=== PATIENT | male | born 1960 | race Caucasian/White ===

== ENCOUNTER 2020-09-01 01:18 | Outpatient (CLI) | payer BC, SELFPAY ==
[2020-09-01 19:05] LABS: SARS-CoV-2 RNA PCR Negative
== END 2020-09-01 01:19 | disposition home or self-care (01) ==
LOC: ANHCOVIDDT 01:18
PROVIDERS: PCP Family Medicine; Visit Provider Internal Medicine Gastroenterology
DX: Z01.812 Encounter for preprocedural laboratory examination (principal); Z20.828 Contact with and (suspected) exposure to other viral communicable diseases
CPT/HCPCS: 87635; C9803; U0003

== ENCOUNTER 2020-09-03 01:15 | Day surgery (SDC) | payer BC, SELFPAY ==
[2020-09-01 10:33] VITALS: BMI 25.9
--- NOTE | 2020-09-02 08:03 | WPDANESEPPF ---
Anes - Initial Pre Proc Eval Procedure: Operation Date: 09/03/20 09:00 Proposed Procedures p Screening Colonoscopy - Jorge Sharma MD Date/Time: 09/02/20 08:03 Surgeon: Jorge Sharma MD Pre Op Diagnosis: neoplasm screening, hx colon polyps Patient Data Age: 59 Gender: M Height: 1.78 m Weight: 81.8 kg Allergies Allergy/AdvReac Type Severity Reaction Status Date / Time No Known Allergies Allergy Unknown Verified 09/03/20 08:21 Home Medications Medication Instructions Recorded Confirmed Type hydrochlorothiazide 25 mg tablet 25 mg PO DAILY #90 tablet 01/03/20 09/01/20 Rx metoprolol succinate 50 mg 50 mg PO DAILY #90 tablet 07/06/20 09/03/20 Rx tablet,extended release 24 hr multivitamin,[id number] 1 tablet PO DAILY 09/01/20 09/01/20 History [Complete Multivitamin] Patient hx anesthesia problems: none Family hx anesthesia problems: none PMFSH Past Medical History Medical History Essential (primary) hypertension Herniated cervical disc Overweight (BMI 25.0-29.9) Prediabetes Surgical History Surgical History History of tonsillectomy Family History Family History (Updated 01/05/18 @ 16:03 by DOCTOR UNKNOWN) Mother Diabetes mellitus Patient's mother is , Onset Age: 58 Father Patient's father is , Onset Age: 92 Social History Social History Smoking packs per day: 2 Smoking cigarettes per day: 40.0 Years smoked: 25 Smoking pack-years: 50.00 Smoking status: Former smoker Tobacco type: cigarettes Alcohol intake: former Alcohol use details: QUIT DRINKING 2000 Substance use: never Substance use type: does not use Living arrangements: with family Spiritual care concerns: No Anes - Eval Final PreProcedure Day of Procedure 09/02/20 08:03 Patient weight: overweight Heart: regular rate and rhythm Lungs: clear to auscultation and normal air movement Airway: Mallampati scale class II Neurological: alert and oriented Last oral intake: >/= 8 hours ASA classification: II Emergent: no Anesthetic plan: proceed Anesthesia type and monitoring: general GIVS and standard monitoring Informed Consent: The patient's anesthetic plan and its attendant risks and benefits were discussed with the patient/family/POA. Questions were solicited and answers provided to the satisfaction of the patient/family/POA.
[2020-09-03 08:22] VITALS: BP 188/97; PULSE 75; RESP 18; TEMP 36.7; O2SAT 98
--- NOTE | 2020-09-03 08:26 | P.HP_ITS ---
History of Present Illness History of Present Illness Consent: Risks, benefits, and alternatives have been discussed and questions answered. Patient agrees to proceed with procedure. Chief complaint: neoplasm screening, hx colon polyps Narrative: Luis Louie is a 59 year old W male referred for screening colonoscopy secondary history of colonic polyps colonoscopy was 3 years ago. patient is asymptomatic. no family history of colon polyps or colon cancer [facility] Past Medical History Medical History Essential (primary) hypertension Herniated cervical disc Overweight (BMI 25.0-29.9) Prediabetes Surgical History Surgical History History of tonsillectomy Family History Family History (Updated 01/05/18 @ 16:03 by DOCTOR UNKNOWN) Mother Diabetes mellitus Patient's mother is , Onset Age: 58 Father Patient's father is , Onset Age: 92 Social History Social History Smoking packs per day: 2 Smoking cigarettes per day: 40.0 Years smoked: 25 Smoking pack-years: 50.00 Smoking status: Former smoker Tobacco type: cigarettes Alcohol intake: former Alcohol use details: QUIT DRINKING 2000 Substance use: never Substance use type: does not use Living arrangements: with family Spiritual care concerns: No Meds Home Medications and Allergies Home Medications Medication Instructions Recorded Confirmed Type hydrochlorothiazide 25 mg tablet 25 mg PO DAILY #90 tablet 01/03/20 09/01/20 Rx metoprolol succinate 50 mg 50 mg PO DAILY #90 tablet 07/06/20 09/03/20 Rx tablet,extended release 24 hr multivitamin,[id number] 1 tablet PO DAILY 09/01/20 09/01/20 History [Complete Multivitamin] Allergies Allergy/AdvReac Type Severity Reaction Status Date / Time No Known Allergies Allergy Unknown Verified 09/03/20 08:21 Vital Signs Vital Signs - 24 hr 09/03/20 08:22 Temperature 36.7 C Pulse Rate 75 Respiratory Rate 18 Blood Pressure 188/97 H Pulse Oximetry 98 Exam Const: Orientation/consciousness: patient oriented x3 Resp: Auscultation: clear to auscultation bilaterally Cardio: Rate: regular rate Rhythm: regular rhythm Heart sounds: no murmurs GI: GI Palp: Yes Soft to palpation, No Tenderness to palpation present (GI), Yes No hepatosplenomegaly present and No Palpable mass present Auscultation: normal bowel sounds Neuro: General: patient oriented x3 and no focal motor deficits Extrem: General: no pedal edema Assessment and Plan Additional Plan screening colonoscopy secondary history of colonic polyps
[2020-09-03] MEDS: LACTATED RINGERS 1,000 ML 150 ML IV CONT (08:33)
[2020-09-03 09:26] VITALS: BP 112/60; PULSE 72; RESP 18; O2SAT 98
[2020-09-03 09:36] VITALS: BP 118/62; PULSE 70; RESP 16; O2SAT 98
[2020-09-03 09:46] VITALS: BP 116/58; PULSE 68; RESP 16; O2SAT 98
== END 2020-09-03 09:59 | disposition home or self-care (01) ==
PROVIDERS: PCP Family Medicine; Visit Provider Internal Medicine Gastroenterology
PROC: 0DJD8ZZ Inspection of Lower Intestinal Tract, Via Natural or Artificial Opening Endoscopic (ICD-10-PCS; CPT 45378; principal; 2020-09-03 09:00)
DX: Z12.11 Encounter for screening for malignant neoplasm of colon (principal); Z86.010 Personal history of colon polyps; I10 Essential (primary) hypertension; R73.03 Prediabetes; Z87.891 Personal history of nicotine dependence
CPT/HCPCS: 45378; J2704; J7120

== ENCOUNTER 2022-06-09 18:46 | Emergency (ER) | payer BC, SELFPAY ==
--- NOTE | ~2022-06-09 | XR_ITS ---
EXAMINATION: XR finger 1st RT min 2V DATE: 06/09/2022 19:21 INDICATION: Right thumb injury with split down the center of the nail and open laceration TECHNIQUE: Dorsal palmar, lateral and oblique views of the right first digit were obtained COMPARISON: None FINDINGS: Small minimally displaced fracture at the dorsal aspect of the tuft of the right first distal phalanx . Alignment remains near-anatomic. No other fractures identified. 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 Soft tissue swelling at the distal aspect of the thumb. IMPRESSION: 1. Minimally displaced small fracture at the dorsal aspect of the tuft of the first distal phalanx wh ich given the provided history of associated nail injury would render this equivalent of an open/comp ound fracture at increased risk of osteomyelitis. Reviewed, dictated and finalized at location A. IMPRESSION: 1. Minimally displaced small fracture at the dorsal aspect of the tuft of the f irst distal phalanx which given the provided history of associated nail injury would render this equivalent of an open/compound fracture at increased risk of osteomyelitis.
[2022-06-09 18:49] VITALS: BP 156/90; PULSE 71; RESP 18; TEMP 36.2; O2SAT 100
--- NOTE | 2022-06-09 19:07 | ED.WOUNDLAC ---
HPI - Wound/Laceration General Chief Complaint: Wound/Laceration Stated Complaint: RIGHT THUMB INJURY Time Seen by Provider: 06/09/22 18:59 Source: patient Mode of arrival: ambulatory Limitations: no limitations Related Data Home Medications Medication Instructions Recorded Confirmed multivitamin,[id number] 1 tablet PO DAILY 09/01/20 08/19/21 (Complete Multivitamin tablet) Allergies Allergy/AdvReac Type Severity Reaction Status Date / Time No Known Allergies Allergy Unknown Verified 06/09/22 19:14 [facility] Past Medical History Medical History Essential (primary) hypertension Herniated cervical disc Overweight (BMI 25.0-29.9) Prediabetes Surgical History Surgical History History of tonsillectomy Family History Family History Mother Diabetes mellitus Patient's mother is , Onset Age: 58 Father Patient's father is , Onset Age: 92 Social History Social History (Updated 06/09/22 @ 19:08 by Milena Villarreal PA-C) Smoking packs per day: 2 Smoking cigarettes per day: 40.0 Years smoked: 25 Smoking pack-years: 50.00 Smoking status: Former smoker Tobacco type: cigarettes Alcohol intake: former Alcohol use details: QUIT DRINKING 2000 Substance use: never Substance use type: does not use Spiritual care concerns: No Course Vital Signs Vital signs: Vital Signs Temperature 97.1 F L 06/09/22 18:49 Pulse Rate 71 06/09/22 18:49 Respiratory Rate 18 06/09/22 18:49 Blood Pressure 156/90 H 06/09/22 18:49 Pulse Oximetry 100 06/09/22 18:49 Oxygen Delivery Room Air 06/09/22 18:49 Temperature 97.1 F L 06/09/22 18:49 Pulse Rate 71 06/09/22 18:49 Respiratory Rate 18 06/09/22 18:49 Blood Pressure 156/90 H 06/09/22 18:49 Pulse Oximetry 100 06/09/22 18:49 Oxygen Delivery Room Air 06/09/22 18:49 Procedures Laceration Laceration 1: Date: 06/09/22 Time: 21:00 Site: hand Side (If applicable): right Size (cm): 2 Description: irregular Depth: simple, single layer Local Anesthetic: lidocaine 1% Amount of anesthesia used (mL): 3 Pre-repair: irrigated extensively ====== Skin Level ====== Skin layer closed with: nylon and other (Chromic Gut) Size (cm): 4-0 and 5-0 Number of sutures: 5 Technique: simple, interrupted ====== Subcutaneous Layer ====== ====== Muscle Layer ====== ====== Tendon Layer ====== MDM - Wound/Laceration MDM Narrative Medical decision making narrative: Patient presents emergency department for a laceration to the right first finger involving the nail sustained just prior to arrival. Wound was irrigated. Nailbed was repaired and skin sutured. Patient was updated on tetanus. Right first finger x-rays show minimally displaced small fracture at the dorsal aspect of the tuft of the first distal phalanx. Patient was educated on further wound care. Given dose of Ancef in the ED. Will be discharged on oral antibiotics. Instructed to follow-up with his primary doctor. Given information for hand surgery if needed as well. He was given warnings to return to the ER Imaging Data Radiologist's impression: ITS Impressions Finger X-Ray 06/09/22 19:22 IMPRESSION: 1. Minimally displaced small fracture at the dorsal aspect of the tuft of the first distal phalanx which given the provided history of associated nail injury would render this equivalent of an open/compound fracture at increased risk of osteomyelitis. Critical Care Time Critical Care Time Critical Care Time: No Discharge Plan Discharge Clinical Impression: Laceration of finger of right hand without foreign body with damage to nail
[2022-06-09] MEDS: TETANUS,DIPHTHERIA,AC PERTUSSIS ADULT (0.5 ML) BOOSTRIX IM (19:30)
== END 2022-06-09 21:10 | disposition home or self-care (01) ==
PROVIDERS: Emergency Provider Emergency Medicine; PCP Family Medicine
DX: S62.521B Displaced fracture of distal phalanx of right thumb, initial encounter for open fracture (principal); W23.0XXA Caught, crushed, jammed, or pinched between moving objects, initial encounter; Z23 Encounter for immunization; I10 Essential (primary) hypertension
CPT/HCPCS: 12001; 73140; 90471; 90715; 96365; 99284; J0690

== ENCOUNTER 2025-07-14 14:45 | Outpatient (CLI) | payer MEDICARE, SELFPAY ==
--- NOTE | ~2025-07-14 | MR_ITS ---
EXAMINATION: MR brain/brain stem wo con DATE: 07/14/2025 15:13 INDICATION: Amnesia TECHNIQUE: Magnetic resonance imaging (MRI) of the brain and brainstem was performed without intravenous contrast. Sequences included sagittal and axial T1-weighted SE, axial diffusion-weighted FS SE, axial 3D SWAN, axial T2-weighted FLAIR, and axial T2-weighted FSE. Apparent diffusion coefficient (ADC) maps were created. COMPARISON: None. FINDINGS: There are no areas of restricted diffusion to suggest acute infarction. No intracranial hemorrhage or abnormal intracranial mass lesion. There are scattered areas of nonspecific increased T2-weighted signal intensity in the cerebral white matter which is within normal limits for age and likely sequela of chronic small vessel ischemic disease. There are no intraparenchymal signal abnormalities seen on the other pulse sequences. Symmetric marked enlargement of the lateral ventricles is also enlargement of the third ventricle. The septum pellucidum appears absent which could be either developmental or acquired. The corpus callosum appears markedly thinned throughout but present. No periventricular increased fluid signal to suggest transependymal flow in the setting of acute symptomatic hydrocephalus. The basal cisterns and sulci remain patent. Normal pituitary. There are no abnormal extra-axial fluid collections. Flow voids are seen in the cerebral arteries on the T2-weighted sequences consistent with their expected patency. Mild mucosal thickening the bilateral ethmoid sinuses. Visualized orbits and soft tissues are unremarkable. IMPRESSION: 1. Marked symmetric enlargement of the lateral and third ventricles and absent septum pellucidum and without transependymal flow to suggest lymphatic acute hydrocephalus. There is of indeterminate etiology. The severity of the findings which appear previously unknown suggests this is chronic, potentially congenital. Correlate with clinical history and with any prior outside imaging of the brain. 2. Mild scattered nonspecific white matter T2 hyperintensity which is within normal limits for age and likely sequela of chronic small vessel ischemic disease. Reviewed, dictated and finalized at location A. IMPRESSION: 1. Marked symmetric enlargement of the lateral and third ventricles and absent septum pellucidum and without transependymal flow to suggest lymphatic acute hy drocephalus. There is of indeterminate etiology. The severity of the findings w hich appear previously unknown suggests this is chronic, potentially congenital . Correlate with clinical history and with any prior outside imaging of the bra in. 2. Mild scattered nonspecific white matter T2 hyperintensity which is within no rmal limits for age and likely sequela of chronic small vessel ischemic disease .
== END 2025-07-14 14:46 | disposition home or self-care (01) ==
LOC: GOSHIMG 14:45
PROVIDERS: PCP Family Medicine; Visit Provider Family Medicine
DX: R41.3 Other amnesia (principal); R90.82 White matter disease, unspecified
CPT/HCPCS: 70551